=== PATIENT | male | born 2000 | race Caucasian/White ===

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

== ENCOUNTER 2022-06-20 14:46 | Emergency (ER) | payer OTHER ==
[~2022-06-20] VITALS: Ht 190.5 cm; Wt 88.5 kg
== END 2022-06-20 16:29 | disposition home or self-care (01) ==
LOC: ER 14:46
DX: K62.89 Other specified diseases of anus and rectum (principal); F17.210 Nicotine dependence, cigarettes, uncomplicated; Z88.0 Allergy status to penicillin; Z88.5 Allergy status to narcotic agent
CPT/HCPCS: 99282